=== PATIENT | male | born 1990 | race Caucasian/White ===

== ENCOUNTER 2017-10-02 01:52 | Emergency (ER) | payer MEDICAID ==
[2017-10-02] MEDS ORDERED: Albuterol 0.083% Inhal Sol (2.5 mg/3 mL) UD INH STA (02:36)
[2017-10-02 02:39] VITALS: TEMP 98.5
--- NOTE | 2017-10-02 02:43 | ED PDOC ---
HPI: General Adult Time Seen by Provider: 10/02/17 02:09 Chief Complaint (Nursing): Respiratory Distress Chief Complaint (Provider): Asthma History Per: Patient History/Exam Limitations: no limitations Onset/Duration Of Symptoms: Days Additional Complaint(s): 27 yo male with history of asthma presents with asthma symptoms. Pt states he wanted to get his asthma checked. Pt was seen by PMD earlier in the week and was given Rx for albuterol nebulizer but he does not have a machine. PT states he feels a little right. Pt denies chest pain. Past Medical History Reviewed: Historical Data, Nursing Documentation, Vital Signs Vital Signs: Last Vital Signs Temp 98.5 F 10/02/17 02:36 Pulse 81 10/02/17 02:36 Resp 18 10/02/17 02:36 BP 149/73 10/02/17 02:36 Pulse Ox 99 10/02/17 02:36 - Medical History PMH: Anxiety, Arthritis, Asthma, Bipolar Disorder, Depression, Schizophrenia Denies: Diabetes, Hepatitis, HIV, HTN, Chronic Kidney Disease, Seizures, Sexually Transmitted Disease - Surgical History Surgical History: No Surg Hx - Family History Family History: States: Unknown Family Hx - Living Arrangements Living Arrangements: With Family - Social History Current smoker - smoking cessation education provided: Yes Alcohol: None - Immunization History Hx Tetanus Toxoid Vaccination: No Hx Influenza Vaccination: No Hx Pneumococcal Vaccination: No - Home Medications Home Medications: Ambulatory Orders Medication Instructions Recorded Albuterol 0.083% [Albuterol 0.083% 2.5 mg IH QID PRN #20 10/02/17 Inhal Mary Beth (2.5 mg/3 ml) UD] Albuterol HFA [Ventolin HFA 90 1 puff IH BID PRN #1 unit 10/02/17 mcg/actuation (8 g)] - Allergies Allergies/Adverse Reactions: Allergies Allergy/AdvReac Type Severity Reaction Status Date / Time methylphenidate HCl Allergy muscle Verified 12/12/15 01:51 [From Ritalin] twitching risperidone [From Risperdal] Allergy muscle Verified 12/12/15 01:51 twitching Review of Systems ROS Statement: Except As Marked, All Systems Reviewed And Found Negative Constitutional: Negative for: Fever, Chills Respiratory: Positive for: Cough, Other ("I feel tight"). Negative for: Shortness of Breath, Hemoptysis, SOB with Exertion Physical Exam - Reviewed Nursing Documentation Reviewed: Yes Vital Signs Reviewed: Yes - Physical Exam Appears: Positive for: Well, Non-toxic, No Acute Distress Head Exam: Positive for: ATRAUMATIC, NORMAL INSPECTION, NORMOCEPHALIC Skin: Positive for: Normal Color, Warm, DRY Eye Exam: Positive for: Normal appearance ENT: Positive for: Normal ENT Inspection Neck: Positive for: Normal, Painless ROM Cardiovascular/Chest: Positive for: Regular Rate, Rhythm Respiratory: Positive for: Normal Breath Sounds. Negative for: Accessory Muscle Use, Respiratory Distress Back: Positive for: Normal Inspection Extremity: Positive for: Normal ROM Neurologic/Psych: Positive for: Alert, Oriented - ECG O2 Sat by Pulse Oximetry: 99 Disposition - Clinical Impression Clinical Impression: Asthma - Patient ED Disposition Is Patient to be Admitted: No - Disposition Disposition: Routine/Home Disposition Time: 02:44 Condition: STABLE Prescriptions: Albuterol 0.083% [Albuterol 0.083% Inhal Mary Beth (2.5 mg/3 ml) UD] 2.5 mg IH QID PRN #20 PRN Reason: Shortness Of Breath Albuterol HFA [Ventolin HFA 90 mcg/actuation (8 g)] 1 puff IH BID PRN #1 unit PRN Reason: Wheezing Instructions: Asthma in Adults
[2017-10-02] MEDS ORDERED: Albuterol 0.083% Inhal Sol (2.5 mg/3 mL) UD ONE (02:58)
[2017-10-02 05:47] VITALS: BP 122/78; PULSE 92; RESP 19; O2SAT 98
== END 2017-10-02 03:00 | disposition home or self-care (01) ==
LOC: H.ER 01:52
DX: J45.909 Unspecified asthma, uncomplicated (principal); Z86.59 Personal history of other mental and behavioral disorders; F17.200 Nicotine dependence, unspecified, uncomplicated